=== PATIENT | female | born 1975 | race Caucasian/White ===

== ENCOUNTER 2017-09-12 16:53 | Emergency (ER) | payer OTHER ==
[2017-09-12 17:10] VITALS: BP 124/77
--- NOTE | 2017-09-12 19:01 | UC ---
Throat Pain/Nasal Nishant HPI - HPI Summary HPI Summary: 41 yo WF c/o cough x 10 days with white sputum and B/L sinus pains associated with anterior upper teeth pain with green yellow d/c x 3 days - History of Current Complaint Chief Complaint: UCRespiratory Stated Complaint: SINUS COMPLAINT Time Seen by Provider: 09/12/17 18:07 Hx Obtained From: Patient Hx Last Menstrual Period: 09/01/17 Onset/Duration: Lasting Days, Still Present Severity: Moderate Pain Intensity: 5 Cough: Productive - Allergies/Home Medications Allergies/Adverse Reactions: Allergies Allergy/AdvReac Type Severity Reaction Status Date / Time No Known Allergies Allergy Verified 09/12/17 17:10 PMH/Surg Hx/FS Hx/Imm Hx Previously Healthy: Yes Cardiovascular History: Hypertension - Surgical History Surgical History: Yes Surgery Procedure, Year, and Place: - Social History Alcohol Use: None Substance Use Type: None Smoking Status (MU): Never Smoked Tobacco Review of Systems Constitutional: Negative Skin: Negative Eyes: Negative ENT: Nasal Discharge, Sinus Pain/Tenderness Respiratory: Cough Cardiovascular: Negative Gastrointestinal: Negative Genitourinary: Negative Motor: Negative Neurovascular: Negative Musculoskeletal: Negative Neurological: Negative Psychological: Negative All Other Systems Reviewed And Are Negative: Yes Physical Exam Triage Information Reviewed: No Appearance: No Pain Distress Vital Signs: Initial Vital Signs Temp 37.6 C 09/12/17 17:03 Pulse 104 09/12/17 17:03 Resp 18 09/12/17 17:03 BP 124/77 09/12/17 17:03 Pulse Ox 98 09/12/17 17:03 Eyes: Positive: Conjunctiva Clear ENT: Positive: Pharynx normal, Pharyngeal erythema, Nasal drainage, Sinus tenderness. Negative: TM bulging, TM dull, TM red, Tonsillar swelling, Tonsillar exudate Neck exam: Normal Respiratory Exam: Normal Respiratory: Positive: Lungs clear, Rhonchi Cardiovascular Exam: Normal Abdominal Exam: Normal Bowel Sounds: Positive: Present Musculoskeletal Exam: Normal Neurological Exam: Normal Psychological Exam: Normal Skin Exam: Normal Throat Pain/Nasal Course/Dx - Course Course Of Treatment: possible evolving bacterial bronchitis and sinusitis- not yet bacterial, advised pt to wait to take abx until sx worsen as it may still be a viral sinusitis and body may still hel itself - Differential Dx/Diagnosis Differential Diagnosis/HQI/PQRI: Sinusitis, Other - bronchitis Provider Diagnoses: Bronchitis. sinusitis Discharge - Sign-Out/Discharge Documenting (check all that apply): Discharge/Admit/Transfer - Discharge Plan Condition: Stable Disposition: HOME Prescriptions: Azithromycin TAB* [Zithromax TAB (Z-LEIGH) 250 mg #6 tabs] 2 tab PO .TODAY, THEN 1 DAILY #1 leigh Patient Education Materials: Sinusitis (ED), Acute Bronchitis (ED) Referrals: Rachna BERKOWITZ,Jacek Gonzalez [Primary Care Provider] - Additional Instructions: please WAIT to take antibiotics for another few days until sinus infection and bronchitis worsens - Billing Disposition and Condition Condition: STABLE Disposition: HOME
== END 2017-09-12 19:02 | disposition home or self-care (01) ==
LOC: UCEAST 16:53
DX: J32.9 Chronic sinusitis, unspecified (principal); J40 Bronchitis, not specified as acute or chronic; I10 Essential (primary) hypertension
CPT/HCPCS: 99212; G0463

== ENCOUNTER 2019-07-16 11:56 | Emergency (ER) | payer OTHER ==
[2019-07-16 12:32] VITALS: BP 112/72
--- NOTE | 2019-07-16 13:39 | UC ---
Ear Complaint HPI - HPI Summary HPI Summary: PATIENT COMPLAINS OF A FEW WEEKS OF LEFT EAR PAIN, SINUS PRESSURE AND INTERMITTENT FEELING OF DIZZINESS. NO FALLS. NO FEVER. NO NAUSEA/VOMITING. NO HEARING LOSS OR TINNITIS. - History of Current Complaint Chief Complaint: UCEar Stated Complaint: EARPAIN, SINUS ISSUES Time Seen by Provider: 07/16/19 13:24 Hx Obtained From: Patient Hx Last Menstrual Period: 06/17/19 Onset/Duration: Gradual Onset, Lasting Weeks, Still Present Severity Initially: Moderate Severity Currently: Moderate Pain Intensity: 6 Pain Scale Used: 0-10 Numeric Aggravating Factors: Nothing Alleviating Factors: Nothing Associated Signs/Symptoms: Negative: Discharge, Hearing Loss, Trauma to Ear, URI Symptoms - Allergies/Home Medications Allergies/Adverse Reactions: Allergies Allergy/AdvReac Type Severity Reaction Status Date / Time No Known Allergies Allergy Verified 07/16/19 12:32 Home Medications: Home Medications Levothyroxine TAB* [Synthroid 75 MCG TAB*] 75 mcg PO 0800 11/21/13 [History Confirmed 07/16/19] Amlodipine Besylate [Amlodipine Besylate-] 10 mg PO DAILY 02/08/15 [History Confirmed 07/16/19] Benazepril HCl [Benazepril HCl-] 20 mg PO DAILY 02/08/15 [History Confirmed ] Amoxicillin/Clavulanate TAB* [Augmentin TAB 875*] 875 mg PO BID #20 tab [Rx] Ascorbic Acid TAB* [Vitamin C TAB*] 500 mg PO DAILY 07/16/19 [History Confirmed 07/16/19] PMH/Surg Hx/FS Hx/Imm Hx Endocrine History: Hypothyroidism Cardiovascular History: Hypertension - Surgical History Surgical History: Yes Surgery Procedure, Year, and Place: - Family History Known Family History: Positive: Non-Contributory - Social History Alcohol Use: None Substance Use Type: None Smoking Status (MU): Never Smoked Tobacco Review of Systems All Other Systems Reviewed And Are Negative: Yes Constitutional: Positive: Negative ENT: Positive: Ear Ache, Sinus Congestion, Sinus Pain/Tenderness Respiratory: Positive: Negative Cardiovascular: Positive: Negative Gastrointestinal: Positive: Negative Neurological/Mental Status: Positive: Other - DIZZY Physical Exam Triage Information Reviewed: Yes Appearance: Well-Appearing, No Pain Distress, Well-Nourished Vital Signs: Initial Vital Signs Temp 98.6 F 07/16/19 12:28 Pulse 102 07/16/19 12:28 Resp 16 07/16/19 12:28 BP 112/72 07/16/19 12:28 Pulse Ox 99 07/16/19 12:28 Vital Signs Reviewed: Yes Eyes: Positive: Conjunctiva Clear ENT: Positive: Hearing grossly normal, Pharynx normal, TMs normal, Sinus tenderness Neck: Positive: Supple, Nontender, No Lymphadenopathy Respiratory Exam: Normal Cardiovascular Exam: Normal Abdomen Description: Positive: Soft Musculoskeletal: Positive: No Edema Neurological: Positive: Alert Psychological: Positive: Age Appropriate Behavior Skin: Negative: Rashes Ear Complaint Course/Dx - Course Course Of Treatment: NO EAR INFECTION ON EXAM TODAY. PATIENT DOES NOT HAVE FEVER OR PURULENT NASAL DISCHARGE BUT GIVEN HER PERSISTENT SINUS PRESSURE AND TENDERNESS WILL GO AHEAD AND COVER FOR ACUTE SINUSITIS WITH ANTIBIOTICS. I HAVE STRONGLY ENCOURAGED THE PATIENT TO FOLLOW-UP WITH AN ENT TO DISCUSS HER RECURRENT SYMPTOMS OFTEN ANTIBIOTICS NOT THE ANSWER FOR RECURRENT SINUS SMPTOMS. - Differential Dx/Diagnosis Provider Diagnosis: Left ear pain, Acute sinusitis Discharge ED - Sign-Out/Discharge Documenting (check all that apply): Patient Departure All imaging exams completed and their final reports reviewed: No Studies - Discharge Plan Condition: Stable Disposition: HOME Prescriptions: Amoxicillin/Clavulanate TAB* [Augmentin TAB 875*] 875 mg PO BID #20 tab Patient Education Materials: Sinusitis (ED) Referrals: [facility] [Provider Group] Rachna BERKOWITZ,Jacek Gonzalez [Primary Care Provider] - If Needed Additional Instructions: NO EAR INFECTION ON EXAM TODAY. YOUR SINUS SYMPTOMS MAY BE VIRALLY MEDIATED BUT GIVEN THE LENGTH OF TIME YOU HAVE BEEN ILL WE WILL COVER YOU WITH ANTIBIOTICS. TAKE THE MEDICINE FOR THE FULL COURSE. REST, HYDRATE, OTC MEDS NEEDED. SEEK FOLLOW-UP WITH YOUR PCP IF YOU ARE NOT IMPROVING OVER THE NEXT 1- 2 WEEKS. CONSIDER FOLLOWING UP WITH AN ENT TO DISCUSS YOUR RECURRENT SINUS SYMPTOMS AND PERSISTENT EAR PAIN. EAR PAIN, NON-SPECIFIC There are many causes of ear pain in adults. Pain that's felt in the ear can actually be coming from somewhere nearby. This is called "referred pain." Problems in the teeth, throat, or jaw joint (TMJ) often cause ear pain. Sometimes the physical exam or medical history suggests a treatable cause. If not, we may wait for the pain to go away. New symptoms may offer a clue to the cause of the pain. Report any changes to your care provider. These are some conditions that can cause ear pain, but may not be obvious from physical examination: Eardrum injury Pressure changes (barotrauma) due to swimming or shock waves Mild trauma such as Q-tip injury or finger-picking the outer ear Mild outer ear infection (swimmer's ear) Low-grade or chronic middle ear infection Mastoiditis (infection in the bone behind the ear) TMJ syndrome or arthritis of the jaw Pressure from hard earwax Tooth infection Infected tonsil Sinus infection Nerve disease such as Arnett's Palsy Follow your care provider's treatment recommendations. Let the ear rest. Don't insert cotton swabs, dig at the ear with your finger, or force your ears to "pop." If you're not improving after a few days, or if new symptoms arise, see the doctor. Watch for: Decreased hearing Spreading pain or headache Drainage or bleeding from the ear Fever Weakness of the face muscles Other new symptoms - Billing Disposition and Condition Condition: STABLE Disposition: Home
== END 2019-07-16 13:53 | disposition home or self-care (01) ==
LOC: UCEAST 11:56
DX: J01.90 Acute sinusitis, unspecified (principal); H92.02 Otalgia, left ear; I10 Essential (primary) hypertension; E03.9 Hypothyroidism, unspecified; Z79.890 Hormone replacement therapy; Z79.899 Other long term (current) drug therapy
CPT/HCPCS: 99212; G0463